=== PATIENT | female | born 1980 | race Two or more races ===

== ENCOUNTER 2017-09-20 07:35 | Inpatient (IN) | payer MEDICAID ==
[~2017-09-20] VITALS: Ht 162.6 cm; Wt 108.9 kg
[2017-09-20 07:55] VITALS: BP 113/76
[2017-09-20] MEDS ORDERED: DiphenhydrAMINE 50mg/ml Inj IVP ONE ×2 (08:00→10:15)
[2017-09-20] MEDS ORDERED: Metoclopramide 10mg/2ml Inj IVP ONE (08:00)
[2017-09-20] MEDS ORDERED: Morphine Sulfate 4mg/ml Inj IVP ONE (08:00)
--- NOTE | 2017-09-20 08:33 | Emergency Room Report ---
History of Present Illness General Chief Complaint: Abdominal Pain Source: Patient Present Illness HPI Patient presents with one week of abdominal pain. Right upper quadrant and epigastric area radiating toward her back. She was evaluated and [facility] and told that her lipase was in the 700s. They did an ultrasound and suggested she might have a retained stone. She is status post cholecystectomy. She denies any fevers. She's been vomiting and has nausea. She was given Zofran and [place]. She tried taking Zofran and then a half an hour later [place] but vomited the medication up. She says the pain is 7/10, constant in pressure and aching. She denies any change in bowel habits. Her last period was in May. She status post tubal ligation and doesn't believe that she is . No URI sy, cough, chest pain, rashes. No alcohol consumption. Allergies: Coded Allergies: KETOROLAC (Verified Allergy, Unknown, 09/20/17) Patient History Past Medical History: see triage record Past Surgical History: svitlana, other - tubal ligation Social History: Denies: smoking, alcohol use Social History Narrative , youngest is 9 Last Menstrual Period: JUN 04 Now: No Reviewed Nursing Documentation: PMH: Agreed, PSxH: Agreed Nursing Documentation-PMH Past Medical History: No Stated History Review of Systems All Other Systems: negative except mentioned in HPI Physical Exam Vital Signs Date Time Temp Pulse Resp B/P (MAP) Pulse Ox O2 Delivery O2 Flow Rate FiO2 09/20/17 07:37 97.7 90 16 113/76 97 Room Air Sp02 EP Interpretation: reviewed, normal General Appearance: well appearing, no apparent distress, GCS 15, obese Head: normocephalic Eyes: bilateral eye normal inspection, bilateral eye PERRL, bilateral eye EOMI ENT: moist mucus membranes Neck: supple Respiratory: lungs clear, normal breath sounds Cardiovascular #1: regular rate, rhythm Cardiovascular #2: 2+ radial (R) Gastrointestinal: normal inspection, normal bowel sounds, no mass, no rebound, guarding - RUQ, tenderness, overweight Genitourinary: no CVA tenderness Musculoskeletal: back normal, gait/station normal, normal range of motion Neurologic: alert, oriented x3, grossly normal Psychiatric: mood/affect normal Skin: normal inspection, warm/dry Medical Decision Making Diagnostic Impression: Primary Impression: Right upper quadrant abdominal pain ER Course Patient presents with right upper quadrant pain with history of elevated lipase and possible gallstone. Differential includes pancreatitis, retained stone, cholecystitis, peptic ulcer disease amongst others. The patient needs evaluation with labs and CT of the abdomen. In addition she is vomiting and will receive Reglan and Benadryl along with analgesics. We'll be giving her IV hydration. Dilaudid needed to help control the pain. Labs with normal WBC, lipase, UA. Patient improved, but then after ultrasound increased pain. U/S without id of stone. Admit for abdominal pain and further tx. CT pending. Not surgical abdomen. Laboratory Tests Test 09/20/17 07:40 09/20/17 08:22 Urine Color Pale yellow Urine Appearance Clear Urine pH 6 (4.5-8.0) Urine Specific [place] 1.020 (1.005-1.035) Urine Protein Negative (NEGATIVE) Urine Glucose (UA) Negative (NEGATIVE) Urine Ketones Negative (NEGATIVE) Urine Occult Blood Negative (NEGATIVE) Urine Nitrite Negative (NEGATIVE) Urine Bilirubin Negative (NEGATIVE) Urine Urobilinogen Normal MG/DL (0.0-1.0) Urine Leukocyte Esterase Negative (NEGATIVE) Urine HCG, Qualitative Negative White Blood Count 8.8 K/UL (4.8-10.8) Red Blood Count 5.10 M/UL (4.20-5.40) Hemoglobin 14.4 G/DL (12.0-16.0) Hematocrit 44.6 % (37.0-47.0) Mean Corpuscular Volume 87 FL (80-99) Mean Corpuscular Hemoglobin 28.2 PG (27.0-31.0) Mean Corpuscular Hemoglobin Concent 32.3 G/DL (32.0-36.0) Red Cell Distribution Width 13.1 % (11.6-14.8) Platelet Count 413 K/UL (150-450) Mean Platelet Volume 6.7 FL (6.5-10.1) Neutrophils (%) (Auto) 62.4 % (45.0-75.0) Lymphocytes (%) (Auto) 29.6 % (20.0-45.0) Monocytes (%) (Auto) 4.7 % (1.0-10.0) Eosinophils (%) (Auto) 2.3 % (0.0-3.0) Basophils (%) (Auto) 1.0 % (0.0-2.0) Prothrombin Time 9.4 SEC (9.30-11.50) Prothrombin Time INR 0.9 (0.9-1.1) PTT 26 SEC (23-33) Sodium Level 137 MMOL/L (136-145) Potassium Level 3.9 MMOL/L (3.5-5.1) Chloride Level 103 MMOL/L (98-107) Carbon Dioxide Level 26 MMOL/L (21-32) Anion Gap 8 mmol/L (5-15) Blood Urea Nitrogen 12 mg/dL (7-18) Creatinine 0.9 MG/DL (0.55-1.30) Estimate Glomerular Filtration Rate > 60 mL/min (>60) Glucose Level 82 MG/DL (74-106) Calcium Level 9.3 MG/DL (8.5-10.1) Total Bilirubin 0.3 MG/DL (0.2-1.0) Aspartate Amino Transferase (AST) 15 U/L (15-37) Alanine Aminotransferase (ALT) 29 U/L (12-78) Alkaline Phosphatase 129 U/L (46-116) H Total Protein 8.9 G/DL (6.4-8.2) H Albumin 4.0 G/DL (3.4-5.0) Globulin 4.9 g/dL Albumin/Globulin Ratio 0.8 (1.0-2.7) L Lipase 392 U/L (73-393) CT/MRI/US Diagnostic Results CT/MRI/US Diagnostic Results #1: Imaging Test Ordered: u/s Impression some biliary dilatation, no stone identified CT/MRI/US Diagnostic Results #2: Imaging Test Ordered: ct abdomen/pelvis Impression Impression: Limited evaluation without intravenous contrast. Within these limitations: * Status post cholecystectomy. No appreciable biliary ductal dilatation * No definite pancreatic abnormality seen. Specifically, no peripancreatic inflammatory change or fluid collection. * Likely prior appendectomy. * No bowel obstruction. Last Vital Signs Date Time Temp Pulse Resp B/P (MAP) Pulse Ox O2 Delivery O2 Flow Rate FiO2 09/20/17 10:30 97.7 16 113/76 97 Room Air 09/20/17 07:37 90 Status: improved Disposition: ADMITTED INPATIENT Condition: Serious Scripts No Active Prescriptions or Reported Meds Referrals: NON PHYSICIAN (PCP) Murali Ascencio M.D. Sep 20, 2017 08:33
[2017-09-20 08:45] LABS: EOSINOPHILS % (AUTO) 2.3 % (0.0-3.0); LYMPHOCYTES % (AUTO) 29.6 % (20.0-45.0); MEAN CORPUSCULAR HEMOGLOBIN 28.2 PG (27.0-31.0); MEAN CORPUSCULAR HGB CONC 32.3 G/DL (32.0-36.0); MEAN CORPUSCULAR VOLUME 87 FL (80-99); MEAN PLATELET VOLUME 6.7 FL (6.5-10.1); MONOCYTES % (AUTO) 4.7 % (1.0-10.0); NEUTROPHILS % (AUTO) 62.4 % (45.0-75.0); PLATELET COUNT 413 K/UL (150-450); RED CELL DISTRIBUTION WIDTH 13.1 % (11.6-14.8); WHITE BLOOD COUNT 8.8 K/UL (4.8-10.8)
[2017-09-20 08:50] LABS: APPEARANCE,URINE CLEAR; KETONES,URINE NEGATIVE (NEGATIVE); LEUKOCYTE ESTERASE ,URINE NEGATIVE (NEGATIVE); NITRITE,URINE NEGATIVE (NEGATIVE); PH,URINE 6 (4.5-8.0); PROTEIN,URINE NEGATIVE (NEGATIVE); UROBILINOGEN,URINE NORMAL MG/DL (0.0-1.0)
[2017-09-20 08:51] LABS: ANION GAP 8 mmol/L (5-15); CALCIUM 9.3 MG/DL (8.5-10.1); CARBON DIOXIDE 26 MMOL/L (21-32); CHLORIDE 103 MMOL/L (98-107); CREATININE 0.9 MG/DL (0.55-1.30); GLOMERULAR FILTRATION RATE > 60 mL/min (>60); POTASSIUM 3.9 MMOL/L (3.5-5.1); SODIUM 137 MMOL/L (136-145)
[2017-09-20 08:55] LABS: ALANINE AMINOTRANSFERASE 29 U/L (12-78); ALBUMIN/GLOBULIN RATIO 0.8 (1.0-2.7); ASPARTATE AMINO TRANSFERASE 15 U/L (15-37); INR 0.9 (0.9-1.1); LIPASE 392 U/L (73-393); PROTHROMBIN TIME 9.4 SEC (9.30-11.50); TOTAL PROTEIN 8.9 G/DL (6.4-8.2)
[2017-09-20] MEDS ORDERED: HYDROmorphone 1mg/ml Carpuject IVP ONE ×2 (09:00→10:00)
[2017-09-20 10:30] VITALS: BP_SYST 113; BP_SYST 125; BP_DIAS 76
--- NOTE | 2017-09-20 13:03 | Diagnostic Imaging Report ---
Indication: One week of abdominal pain. Pain in his right upper quadrant and epigastric radiating towards the back. Technique: CT of the abdomen and pelvis utilizing automated exposure control with oral contrast. No intravenous contrast was administered. CT dose: Total DLP 1105 mGycm; CTDI vol 19.9 mGy Comparison: Correlation made to concurrent abdominal ultrasound. Findings: Please note that evaluation of the abdominal and pelvic viscera is limited without the use of intravenous contrast. Within these limitations, the following observations are made: Images through the lower lungs demonstrate no focal airspace consolidation. Heart size is within normal limits. There is no pericardial effusion. The patient is noted to be status post cholecystectomy. There is no appreciable intrahepatic or extrahepatic biliary ductal dilatation. No focal liver lesion appreciated. Noncontrast evaluation of the spleen, adrenal glands and pancreas is unremarkable. Specifically, there is no appreciable peripancreatic inflammatory change or peripancreatic fluid collection. The pancreas is homogenous in attenuation. The kidneys appear symmetric in size. There is no urinary tract stone or hydronephrosis bilaterally. The bladder is decompressed, limiting its evaluation. Uterus and adnexa are grossly unremarkable. There is no evidence of bowel obstruction. No free intraperitoneal fluid or air is seen. The patient appears to be status post appendectomy. There is no focal inflammatory stranding in the peritoneum. No appreciable focal or diffuse abnormal bowel wall thickening. There is a tiny fat-containing umbilical hernia. No pathologically enlarged abdominal or pelvic adenopathy. No acute osseous abnormality is seen. Impression: Limited evaluation without intravenous contrast. Within these limitations: * Status post cholecystectomy. No appreciable biliary ductal dilatation * No definite pancreatic abnormality seen. Specifically, no peripancreatic inflammatory change or fluid collection. * Likely prior appendectomy. * No bowel obstruction. The CT scanner at [facility] is accredited by the [employer] and the scans are performed using protocols designed to limit radiation exposure to as low as reasonably achievable to attain images of sufficient resolution adequate for diagnostic evaluation.
--- NOTE | 2017-09-20 13:03 | Diagnostic Imaging Report ---
Indication: Abdominal pain TECHNIQUE: Multiplanar grayscale and color Doppler imaging of the abdomen COMPARISON: None available FINDINGS: Evaluation is limited due to patient body habitus and inability to cooperate with exam positioning. Limited evaluation of the pancreatic head which appears grossly unremarkable. No gross liver lesion is seen. There is suggestion of diffusely increased hepatic echogenicity, a finding which is most commonly reflective of hepatic steatosis. Portal vein demonstrates normal direction of flow. The common bile duct measures 6.2 mm in diameter, within normal limits for postcholecystectomy state. The patient is status post cholecystectomy. Right kidney is grossly unremarkable in appearance. Left kidney, spleen and abdominal aorta/IVC are not visualized. There is no appreciable ascites. IMPRESSION: Markedly limited exam as above. * Status post cholecystectomy. * Diffusely increased hepatic echogenicity most commonly reflective of hepatic steatosis. Additional hepatocellular disease should be excluded clinically.
--- NOTE | 2017-09-21 10:36 | Discharge Summary ---
Discharge Summary Hospital Course Date of Admission Sep 20, 2017 at 08:58 Date of Discharge Sep 20, 2017 at 11:00 Admitting Diagnosis pancreatitis HPI Brunilda Arambula is a 37 year old female who was admitted on Sep 20, 2017 at 08:58 for Pancreatitis Hospital Course [id number] Discharge Discharge Disposition Patient left AMA Discharge Diagnoses: Alicia Elise NP Sep 21, 2017 10:36
--- NOTE | 2017-09-21 10:37 | History & Physical ---
History and Physical History & Physicial patient left AMA before being seen Alicia Elise NP Sep 21, 2017 10:37
--- NOTE | 2017-09-21 19:00 | Discharge Summary 2 SIG ---
DATE OF ADMISSION: 09/20/2017 DATE OF DISCHARGE: 09/20/2017 BRIEF HOSPITAL COURSE: The patient is a 37-year-old female, who presented to ED complaining of one week abdominal pain located in the right upper quadrant and epigastric area radiating towards the back. She was recently evaluated at the [facility] where she was told lipase was in the 700s. She is status post cholecystectomy. She denied any fever or vomiting. Symptoms were persistent and constant and the patient presented to ED. Her last menstrual period was in May. She is status post tubal ligation. On evaluation at ED, blood work showed normal WBC, lipase, and UA. CAT scan of the abdomen was done and showed limited evaluation. No bowel obstruction seen. There was no definite pancreatic abnormality seen, status post cholecystectomy with no biliary ductal dilatation. Abdominal ultrasound showed status post cholecystectomy with diffuse increased hepatic echogenicity. She was admitted to medical floor for evaluation of right upper quadrant pain, however on arrival to the floor, the patient signed out against medical advice due to a family emergency. FINAL DIAGNOSES: 1. Right upper quadrant pain. 2. Vomiting. Dm Beck M.D. I have been assigned to dictate discharge summary on this account and I was not involved in the patient's management. Alicia Elise N.P. DR: EVA JOB#: [id number] CC: CASH
== END 2017-09-20 11:00 | disposition left against medical advice (07) | DRG 251 ==
LOC: EMR 07:50 → 3E 08:58 → EDBEDREQ 09:27 → 3E 10:29
DX: R10.11 Right upper quadrant pain (principal); R11.10 Vomiting, unspecified; Z88.8 Allergy status to other drugs, medicaments and biological substances; Z90.49 Acquired absence of other specified parts of digestive tract
CPT/HCPCS: 36415; 74176; 76700; 80053; 81003; 81025; 83690; 85025; 85610; 85730; 99285; J2765